=== PATIENT | male | born 1950 | race Caucasian/White ===

== ENCOUNTER 2018-05-25 00:04 | Emergency (ER) | payer MEDICARE, BC ==
--- NOTE | 2018-05-25 00:11 | EDM.PDOC ---
ED HPI GENERAL MEDICAL PROBLEM - General Chief Complaint: General Stated Complaint: SICK, VERY WEAK [id number] Time Seen by Provider: 05/25/18 00:10 Source of Information: Reports: Patient History Limitations: Reports: No Limitations - History of Present Illness INITIAL COMMENTS - FREE TEXT/NARRATIVE: This 68-year-old male comes the emergency department today with complaints of fatigue and no energy and a very dry mouth. He reports over the last month he has had increased urination. He can drink water all day but his mouth is constantly dry. Over the past 2-3 days while he was on vacation in [place] this is gotten much worse. His mouth is very dry. He is urinating all the time. He has no energy and is very fatigued. He has had no fever or chills. No chest pain no shortness of breath or difficulty breathing No abdominal pain nausea vomiting. No diarrhea. or palpitations or syncope. No headache. No black or tarry stools. He has had quite a bit of weight loss over the last month. He does tell me that he noted some blood in his stool yesterday but it is much worse today. He's had no history of a GI bleed. No history of peptic ulcer. Colonoscopy a couple years ago that he reports is normal. No rectal pain or pressure. No external hemorrhoids. Lower Abdomen Pain Score (Numeric/FACES): 1 - Related Data Allergies Allergy/AdvReac Type Severity Reaction Status Date / Time No Known Allergies Allergy Verified 05/25/18 00:24 Home Meds: Home Meds Potassium Chloride 10 meq PO DAILY 05/25/18 [History] amLODIPine [Norvasc] 5 mg PO DAILY 05/25/18 [History] atorvaSTATin [Lipitor] 20 mg PO DAILY 05/25/18 [History] metFORMIN [Glucophage] 500 mg PO .BIDMEALS 05/25/18 [History] ED ROS GENERAL - Review of Systems Review Of Systems: ROS reveals no pertinent complaints other than HPI. ED EXAM, GENERAL - Physical Exam Exam: See Below Free Text/Narrative:: When I enter the room and is quite evident a smell of ketones in the room. His mouth is insanely dry and his lips are dry and cracked. He looks somewhat emaciated. Exam Limited By: No Limitations General Appearance: Alert, WD/WN, Thin Eye Exam: Bilateral Eye: EOMI, PERRL, Other (sukken area around the eyes. ) Ears: Normal External Exam, Normal TMs Nose: Normal Inspection, Normal Mucosa Throat/Mouth: Normal Teeth, Normal Gums (Pill gums). No: Normal Inspection ( Oral mucosa is very dry.), Normal Lips (Lips are very dry and cracked.) Head: Atraumatic, Normocephalic Neck: Normal Inspection, Supple, Non-Tender Respiratory/Chest: No Respiratory Distress, Lungs Clear, Normal Breath Sounds, No Accessory Muscle Use, Other (Quite tachypneic with no increased work of breathing or appearance of dyspnea) Cardiovascular: Normal Peripheral Pulses, Regular Rate, Rhythm, No Murmur Peripheral Pulses: 1+: Radial (L), Radial (R), Posterior Tibial (L), Posterior Tibial (R), Dorsalis Pedis (L), Dorsalis Pedis (R) GI/Abdominal: No Organomegaly, Tender (LUQ and LLQ mild tenderness. ), Abnormal Bowel Sounds (absolutely no bowel sounds. ) Rectal (Males) Exam: Bloody Stool, Heme + Stool, Other (There is circumferential ecchymosis surrounding the rectum. This is nontender. There is no breaks in the skin.). No: Hemorrhoids, Tenderness Back Exam: Normal Inspection Extremities: Normal Inspection, Normal Range of Motion, Non-Tender, Slow Capillary Refill Neurological: Alert, Oriented, CN II-XII Intact, Normal Cognition, No Motor/ Sensory Deficits Psychiatric: Normal Affect, Normal Mood Skin Exam: Dry, Intact, Normal Color, No Rash Lymphatic: No Adenopathy EKG INTERPRETATION EKG Date: 05/25/18 Time: 00:27 Rhythm: NSR (tachy) Rate (Beats/Min): 103 [place]: Normal P-Wave: Present QRS: Normal (Does not meet criteria for wide but nearing.) ST-T: Normal QT: Normal Course - Vital Signs Last Recorded V/S: Last Vital Signs Temp 35.9 C 05/25/18 02:32 Pulse 102 H 05/25/18 00:14 Resp 29 H 05/25/18 02:32 BP 117/59 L 05/25/18 02:32 Pulse Ox 94 L 05/25/18 02:32 - Orders/Labs/Meds Orders: Active Orders 24 hr Category Date Time Status EKG 12 Lead [EKG Documentation Completion] [RC] URGENT Care 05/25/18 00:14 Active [place]av[place] Catheter Insertion [Insert Urinary Catheter] [OM. Care 05/25/18 01:30 Ordered PC] Q24H POC Glucose [Blood Glucose Check, Bedside] [RC] ONETIME Care 05/25/18 00:13 Active Peripheral IV Care [RC] . DIRECTED Care 05/25/18 00:15 Active Urinary Catheter Assessment [RC] ASDIRECTED Care 05/25/18 01:23 Active INSULIN [REF] Stat Lab 05/25/18 00:38 Ordered OSMOLALITY - SERUM [REF] Stat Lab 05/25/18 01:09 Ordered Peripheral IV Insertion Adult [OM.PC] Stat Oth 05/25/18 00:14 Ordered Labs: Laboratory Tests 05/25/18 05/25/18 05/25/18 Range/Units 00:18 00:25 00:25 WBC 18.1 H (5.0-10.0) 10^3/uL RBC 4.36 L (4.6-6.2) 10^6/uL Hgb 15.3 (14.0-18.0) g/dL Hct 54.5 H (40.0-54.0) % MCV 125.0 H (80-100) fL MCH 35.1 H (27.0-34.0) pg MCHC 28.1 L (33.0-35.0) g/dL Plt Count 260 (150-450) 10^3/uL Neut % (Auto) 86.6 H (42.2-75.2) % Lymph % (Auto) 3.4 L (20.5-50.1) % [place] % (Auto) 10.0 H (2-8) % Eos % (Auto) 0.0 L (1.0-3.0) % Baso % (Auto) 0.0 (0.0-1.0) % VBG pH (7.31-7.41) VBG pCO2 (41-51) mmHg VBG pO2 (35-42) mmHg VBG HCO3 (19-25) mmol/l VBG O2 Saturation (60-80) % VBG Base Excess ((-2)-(+3)) mmol/l O2 Delivery Device Sodium 114 L* (135-145) mmol/L Potassium 3.8 (3.6-5.0) mmol/L Chloride 75 L (101-111) mmol/L Carbon Dioxide 7.0 L* (21.0-31.0) mmol/L Anion Gap 35.8 BUN 79 H (7-18) mg/dL Creatinine 4.2 H (0.6-1.3) mg/dL Est Cr Clr Drug Dosing 17.96 mL/min Estimated GFR (MDRD) 14 BUN/Creatinine Ratio 18.80 Glucose 2004 H* (74-105) mg/dL POC Glucose > 500 H* (83-110) mg/dl Lactic Acid (0.5-2.2) mmol/L Calcium 8.3 L (8.4-10.2) mg/dl Magnesium (1.8-2.5) mg/dL Total Bilirubin 1.8 H (0.2-1.0) mg/dL AST 52 H (10-42) IU/L ALT 142 H (10-60) IU/L Alkaline Phosphatase 69 (42-121) IU/L Creatine Kinase (26-174) IU/L Creatine Kinase Index (0-2.4) % CK-MB (CK-2) (0.4-4.7) ng/mL Troponin I < 0.02 (0.00-0.02) ng/ml C-Reactive Protein (0.0-1.3) mg/dL Total Protein 7.2 (6.7-8.2) g/dl Albumin 4.0 (3.2-5.5) g/dl Globulin 3.2 Albumin/Globulin Ratio 1.25 Lipase (22-51) U/L Urine Color (YELLOW) Urine Appearance (CLEAR) Urine pH (5.0-9.0) Ur Specific Reeves (1.005-1.030) Urine Protein (NEGATIVE) Urine Glucose (UA) (NEGATIVE) Urine Ketones (NEGATIVE) Urine Occult Blood (NEGATIVE) Urine Nitrite (NEGATIVE) Urine Bilirubin (NEGATIVE) Urine Urobilinogen (0.2-1.0) mg/dL Ur Leukocyte Esterase (NEGATIVE) Urine RBC /HPF Urine WBC (0-5/HPF) /HPF Ur Epithelial Cells /HPF Amorphous Sediment (0/HPF) /HPF Urine Bacteria (0-FEW/HPF) /HPF Ketones 05/25/18 05/25/18 05/25/18 Range/Units 00:25 00:25 00:25 WBC (5.0-10.0) 10^3/uL RBC (4.6-6.2) 10^6/uL Hgb (14.0-18.0) g/dL Hct (40.0-54.0) % MCV (80-100) fL MCH (27.0-34.0) pg MCHC (33.0-35.0) g/dL Plt Count (150-450) 10^3/uL Neut % (Auto) (42.2-75.2) % Lymph % (Auto) (20.5-50.1) % [place] % (Auto) (2-8) % Eos % (Auto) (1.0-3.0) % Baso % (Auto) (0.0-1.0) % VBG pH 7.14 L* (7.31-7.41) VBG pCO2 25 L (41-51) mmHg VBG pO2 61 H (35-42) mmHg VBG HCO3 8 L (19-25) mmol/l VBG O2 Saturation 78.8 (60-80) % VBG Base Excess -20.3 L ((-2)-(+3)) mmol/l O2 Delivery Device Room air Sodium (135-145) mmol/L Potassium (3.6-5.0) mmol/L Chloride (101-111) mmol/L Carbon Dioxide (21.0-31.0) mmol/L Anion Gap BUN (7-18) mg/dL Creatinine (0.6-1.3) mg/dL Est Cr Clr Drug Dosing mL/min Estimated GFR (MDRD) BUN/Creatinine Ratio Glucose (74-105) mg/dL POC Glucose (83-110) mg/dl Lactic Acid 5.4 H (0.5-2.2) mmol/L Calcium (8.4-10.2) mg/dl Magnesium (1.8-2.5) mg/dL Total Bilirubin (0.2-1.0) mg/dL AST (10-42) IU/L ALT (10-60) IU/L Alkaline Phosphatase (42-121) IU/L Creatine Kinase (26-174) IU/L Creatine Kinase Index (0-2.4) % CK-MB (CK-2) (0.4-4.7) ng/mL Troponin I (0.00-0.02) ng/ml C-Reactive Protein 0.5 (0.0-1.3) mg/dL Total Protein (6.7-8.2) g/dl Albumin (3.2-5.5) g/dl Globulin Albumin/Globulin Ratio Lipase (22-51) U/L Urine Color (YELLOW) Urine Appearance (CLEAR) Urine pH (5.0-9.0) Ur Specific Reeves (1.005-1.030) Urine Protein (NEGATIVE) Urine Glucose (UA) (NEGATIVE) Urine Ketones (NEGATIVE) Urine Occult Blood (NEGATIVE) Urine Nitrite (NEGATIVE) Urine Bilirubin (NEGATIVE) Urine Urobilinogen (0.2-1.0) mg/dL Ur Leukocyte Esterase (NEGATIVE) Urine RBC /HPF Urine WBC (0-5/HPF) /HPF Ur Epithelial Cells /HPF Amorphous Sediment (0/HPF) /HPF Urine Bacteria (0-FEW/HPF) /HPF Ketones 05/25/18 05/25/18 05/25/18 Range/Units 00:25 00:25 00:25 WBC (5.0-10.0) 10^3/uL RBC (4.6-6.2) 10^6/uL Hgb (14.0-18.0) g/dL Hct (40.0-54.0) % MCV (80-100) fL MCH (27.0-34.0) pg MCHC (33.0-35.0) g/dL Plt Count (150-450) 10^3/uL Neut % (Auto) (42.2-75.2) % Lymph % (Auto) (20.5-50.1) % [place] % (Auto) (2-8) % Eos % (Auto) (1.0-3.0) % Baso % (Auto) (0.0-1.0) % VBG pH (7.31-7.41) VBG pCO2 (41-51) mmHg VBG pO2 (35-42) mmHg VBG HCO3 (19-25) mmol/l VBG O2 Saturation (60-80) % VBG Base Excess ((-2)-(+3)) mmol/l O2 Delivery Device Sodium (135-145) mmol/L Potassium (3.6-5.0) mmol/L Chloride (101-111) mmol/L Carbon Dioxide (21.0-31.0) mmol/L Anion Gap BUN (7-18) mg/dL Creatinine (0.6-1.3) mg/dL Est Cr Clr Drug Dosing mL/min Estimated GFR (MDRD) BUN/Creatinine Ratio Glucose (74-105) mg/dL POC Glucose (83-110) mg/dl Lactic Acid (0.5-2.2) mmol/L Calcium (8.4-10.2) mg/dl Magnesium 3.0 H (1.8-2.5) mg/dL Total Bilirubin (0.2-1.0) mg/dL AST (10-42) IU/L ALT (10-60) IU/L Alkaline Phosphatase (42-121) IU/L Creatine Kinase (26-174) IU/L Creatine Kinase Index (0-2.4) % CK-MB (CK-2) (0.4-4.7) ng/mL Troponin I (0.00-0.02) ng/ml C-Reactive Protein (0.0-1.3) mg/dL Total Protein (6.7-8.2) g/dl Albumin (3.2-5.5) g/dl Globulin Albumin/Globulin Ratio Lipase 87 H (22-51) U/L Urine Color (YELLOW) Urine Appearance (CLEAR) Urine pH (5.0-9.0) Ur Specific [place]eves (1.005-1.030) Urine Protein (NEGATIVE) Urine Glucose (UA) (NEGATIVE) Urine Ketones (NEGATIVE) Urine Occult Blood (NEGATIVE) Urine Nitrite (NEGATIVE) Urine Bilirubin (NEGATIVE) Urine Urobilinogen (0.2-1.0) mg/dL Ur Leukocyte Esterase (NEGATIVE) Urine RBC /HPF Urine WBC (0-5/HPF) /HPF Ur Epithelial Cells /HPF Amorphous Sediment (0/HPF) /HPF Urine Bacteria (0-FEW/HPF) /HPF Ketones Positive 05/25/18 05/25/18 05/25/18 Range/Units 00:25 01:23 02:10 WBC (5.0-10.0) 10^3/uL RBC (4.6-6.2) 10^6/uL Hgb (14.0-18.0) g/dL Hct (40.0-54.0) % MCV (80-100) fL MCH (27.0-34.0) pg MCHC (33.0-35.0) g/dL Plt Count (150-450) 10^3/uL Neut % (Auto) (42.2-75.2) % Lymph % (Auto) (20.5-50.1) % [place] % (Auto) (2-8) % Eos % (Auto) (1.0-3.0) % Baso % (Auto) (0.0-1.0) % VBG pH (7.31-7.41) VBG pCO2 (41-51) mmHg VBG pO2 (35-42) mmHg VBG HCO3 (19-25) mmol/l VBG O2 Saturation (60-80) % VBG Base Excess ((-2)-(+3)) mmol/l O2 Delivery Device Sodium 118 L* (135-145) mmol/L Potassium 4.6 (3.6-5.0) mmol/L Chloride 85 L (101-111) mmol/L Carbon Dioxide 7.0 L* (21.0-31.0) mmol/L Anion Gap 30.6 BUN 78 H (7-18) mg/dL Creatinine 4.1 H (0.6-1.3) mg/dL Est Cr Clr Drug Dosing 18.40 mL/min Estimated GFR (MDRD) 14 BUN/Creatinine Ratio Glucose 1887 H* (74-105) mg/dL POC Glucose (83-110) mg/dl Lactic Acid (0.5-2.2) mmol/L Calcium 8.1 L (8.4-10.2) mg/dl Magnesium (1.8-2.5) mg/dL Total Bilirubin (0.2-1.0) mg/dL AST (10-42) IU/L ALT (10-60) IU/L Alkaline Phosphatase (42-121) IU/L Creatine Kinase 624 H (26-174) IU/L Creatine Kinase Index 1.0 (0-2.4) % CK-MB (CK-2) 6.00 H (0.4-4.7) ng/mL Troponin I (0.00-0.02) ng/ml C-Reactive Protein (0.0-1.3) mg/dL Total Protein (6.7-8.2) g/dl Albumin (3.2-5.5) g/dl Globulin Albumin/Globulin Ratio Lipase (22-51) U/L Urine Color Light yellow (YELLOW) Urine Appearance Slightly cloudy (CLEAR) Urine pH 5.0 (5.0-9.0) Ur Specific Reeves <= 1.005 (1.005-1.030) Urine Protein Trace H (NEGATIVE) Urine Glucose (UA) 500 H (NEGATIVE) Urine Ketones Trace H (NEGATIVE) Urine Occult Blood Moderate H (NEGATIVE) Urine Nitrite Negative (NEGATIVE) Urine Bilirubin Negative (NEGATIVE) Urine Urobilinogen 0.2 (0.2-1.0) mg/dL Ur Leukocyte Esterase Negative (NEGATIVE) Urine RBC 0-5 /HPF Urine WBC 5-10 H (0-5/HPF) /HPF Ur Epithelial Cells Moderate H /HPF Amorphous Sediment Many (0/HPF) /HPF Urine Bacteria Moderate H (0-FEW/HPF) /HPF Ketones Meds: Medications Discontinued Medications Generic Name Dose Route Start Last Admin Trade Name Freq PRN Reason Stop Dose Admin Lactated Ringer's 1,000 mls @ 1,000 mls/hr 05/25/18 00:22 05/25/18 00:26 Ringers, Lactated IV 05/25/18 01:21 1,000 mls/hr .BOLUS ONE Administration Insulin Human Regular 100 unit 100 mls @ 9.29 mls/hr 05/25/18 01:00 05/25/18 00:58 / Sodium Chloride IV 0.1 units/kg/hr TITRATE STIVEN 9.29 mls/hr Administration Protocol 0.1 UNITS/KG/HR Sodium Chloride 1,000 mls @ 500 mls/hr 05/25/18 01:02 05/25/18 01:15 Normal Saline IV 05/25/18 03:01 Not Given .BOLUS ONE Sodium Chloride 1,000 mls @ 50 mls/hr 05/25/18 01:15 05/25/18 01:15 Normal Saline IV 05/29/18 01:09 50 mls/hr ASDIRECTED STIVEN Administration Sodium Chloride 1,000 mls @ 999 mls/hr 05/25/18 01:10 05/25/18 01:15 Normal Saline IV 05/25/18 02:10 999 mls/hr .BOLUS ONE Administration Sodium Chloride 1,000 mls @ 999 mls/hr 05/25/18 01:37 05/25/18 01:42 Normal Saline IV 05/25/18 02:37 999 mls/hr .BOLUS ONE Administration Potassium Chloride/Sodium Chloride 1,000 mls @ 250 mls/hr 05/25/18 02:00 02:28 Normal Saline With 40 Meq Kcl IV 250 mls/hr ASDIRECTED STIVEN Administration Iopamidol 75 ml 05/25/18 01:38 05/25/18 01:41 Isovue-300 (61%) IVPUSH 05/25/18 01:39 75 ml ONETIME ONE Administration Potassium Chloride 40 meq 05/25/18 00:50 05/25/18 01:02 Potassium Chloride Solution PO 05/25/18 00:51 40 meq NOW STA Administration Potassium Chloride 40 meq 05/25/18 01:55 05/25/18 02:26 Potassium Chloride Solution PO 05/25/18 01:56 40 meq NOW STA Administration Sodium Chloride 10 ml 05/25/18 00:15 05/25/18 01:26 Saline Flush FLUSH 10 ml ASDIRECTED PRN Administration Keep Vein Open - Radiology Interpretation Free Text/Narrative:: CT abdomen pelvis with mild right-sided colitis, nonspecific. Most likely infectious. Small hiatal hernia. Minimal dependent atelectasis. Cholelithiasis. Urinary bladder diverticulum. - Re-Assessments/Exams Free Text/Narrative Re-Assessment/Exam: 05/25/18 01:40 His initial fingerstick glucose is over 500. Concerns for DKA 1 liter of LR started. Oral potassium 40meq oral solution. VBGs 7.14, PCos 24, Bicarb 8, Base excess -20.3. NA 114 1 liter of NS bolus started. Blood sugar 2003, Insulin gtt started at 0.1units/kg/hr Creat 4.2, BUn 79 I do have concerns for ischemic bowel with the severe DKA and the rectal bleeding although his kidney function is terrible. I called and spoke with Dr. Fairchild the hospitalist carbon cutter at [facility] in [place], [facility] ER COURSE findings and concerns were relayed to him. HE agrees with the concern of ischemic bowel and despite the poor kidney function CT abd pelvis with contrast as this is more concerning than the DKA. I relayed the findings of the labs and my concerns as well as the hospitalist concerns to the patient. The risk and benefits of the contrast dye with his kidney function but we must find out if he has ischemic bowel. The patient and his wifes questions were answered and they gave consent. 05/25/18 03:17 CT abdomen and pelvis does not show any evidence of bowel ischemia. Some colitis that is most likely infectious per radiology. His sodium is starting to improve as well as his creatinine. He has had 1250 mils of urine was been in the emergency department. He is received a little over 3 L of crystalloid. We will continue the insulin drip at the current rate has blood sugars come down about 115. His neurological status is unchanged. There has been no other episodes of hypotension. We will transfer him to [facility] in [place]. Departure - Departure Time of Disposition: 01:30 Disposition: DC/Tfer to [facility] 02 Clinical Impression: Ketoacidosis in diabetes mellitus, Rectal bleeding Acute renal failure Qualifiers: Acute renal failure type: unspecified Qualified Code(s): N17.9 - Acute kidney failure, unspecified - Discharge Information Referrals: Kendra Williamson MD [Primary Care Provider] - Forms: ED Department Discharge Critical Care Note - Critical Care Note Total Time (mins): 85 Comments: 85 minutes of critical care time spent at direct bedside care, family consultation, consultation with referring providers and close monitoring and frequent reassessment of this quite ill 68 year old male. - My Orders Last 24 Hours: My Active Orders 05/25/18 00:13 POC Glucose [Blood Glucose Check, Bedside] [] ONETIME 05/25/18 00:14 EKG 12 Lead [EKG Documentation Completion] [RC] URGENT Peripheral IV Insertion Adult [OM.PC] Stat 05/25/18 00:15 Peripheral IV Care [RC] . DIRECTED 05/25/18 00:38 INSULIN [REF] Stat 05/25/18 01:09 OSMOLALITY - SERUM [REF] Stat 05/25/18 01:23 Urinary Catheter Assessment [RC] ASDIRECTED 05/25/18 01:30 Leavitt Catheter Insertion [Insert Urinary Catheter] [OM.PC] Q24H - Assessment/Plan Last 24 Hours: My Active Orders 05/25/18 00:13 POC Glucose [Blood Glucose Check, Bedside] [] ONETIME 05/25/18 00:14 EKG 12 Lead [EKG Documentation Completion] [RC] URGENT Peripheral IV Insertion Adult [OM.PC] Stat 05/25/18 00:15 Peripheral IV Care [RC] . DIRECTED 05/25/18 00:38 INSULIN [REF] Stat 05/25/18 01:09 OSMOLALITY - SERUM [REF] Stat 05/25/18 01:23 Urinary Catheter Assessment [RC] ASDIRECTED 05/25/18 01:30 Leavitt Catheter Insertion [Insert Urinary Catheter] [OM.PC] Q24H Assessment:: Severe DKA Acute renal failure Hyponatremia Rectal bleeding bladder diverticulum Cholelithiasis small hiatal hernia leukocytosis Plan: Continue the fluids enroute and insulin gtt enroute to [facility] for further care and evaluation by Dr. Fairchild.
[2018-05-25] MEDS ORDERED: Sodium Chloride 0.9% 10 ML Syringe FLUSH PRN (00:15)
[2018-05-25] MEDS ORDERED: Lactated Ringers 1,000 ML IV ONE (00:22)
[2018-05-25 00:32] LABS: O2 DELIVERY DEVICE ROOM AIR
[2018-05-25 00:36] LABS: BASE EXCESS VENOUS -20.3 mmol/l ((-2)-(+3)); BICARBONATE,VENOUS 8 mmol/l (19-25); O2 SATURATION VENOUS 78.8 % (60-80); PCO2 VENOUS 25 mmHg (41-51); PO2 VENOUS 61 mmHg (35-42)
[2018-05-25 00:39] LABS: PH,VENOUS 7.14 (7.31-7.41)
[2018-05-25] MEDS ORDERED: Potassium Chloride 10% 20 MEQ/15 ML Soln 15 ML UD Cup PO STA ×2 (00:50→01:55)
[2018-05-25 00:59] LABS: ANION GAP 35.8; CHLORIDE,CL 75 mmol/L (101-111); SODIUM,NA 114 mmol/L (135-145)
[2018-05-25] MEDS ORDERED: Sodium Chloride 0.9% 1,000 ML IV ONE ×3 (01:02→01:37)
[2018-05-25] MEDS ORDERED: Sodium Chloride 0.9% 1,000 ML IV SCH (01:15)
[2018-05-25] MEDS ORDERED: Iopamidol 612 MG/ML 75 ML Bottle IVPUSH ONE (01:38)
[2018-05-25] MEDS ORDERED: Sodium Chloride 0.9% with KCl 1,000 ML IV SCH (02:00)
[2018-05-25 02:47] LABS: ANION GAP 30.6
== END 2018-05-25 03:45 ==
LOC: DL.ED 00:04
DX: E11.10 Type 2 diabetes mellitus with ketoacidosis without coma (principal); N17.9 Acute kidney failure, unspecified; K62.5 Hemorrhage of anus and rectum; E87.1 Hypo-osmolality and hyponatremia; K80.20 Calculus of gallbladder without cholecystitis without obstruction; K44.9 Diaphragmatic hernia without obstruction or gangrene; D72.829 Elevated white blood cell count, unspecified; Z79.84 Long term (current) use of oral hypoglycemic drugs
CPT/HCPCS: 36415; 51702; 74177; 80048; 80053; 81001; 82009; 82550; 82553; 82803; 82962; 83525; 83605; 83690; 83735; 83930; 84484; 85025; 86140; 93005; 96365; 96366; 96367; 96368; 99285; A9270; J1815; J3480; J7030; J7050; J7120; Q9967; 93010; 99291; 99292

== ENCOUNTER 2018-08-02 17:41 | Emergency (ER) | payer MEDICARE, BC | END 2018-08-02 18:11 | disposition left against medical advice (07) | LOC: DL.ED 17:41 | DX: R10.9 Unspecified abdominal pain (principal); Z53.21 Procedure and treatment not carried out due to patient leaving prior to being seen by health care provider | CPT/HCPCS: 99283 ==